=== PATIENT | male | born 1960 | race Caucasian/White ===

== ENCOUNTER 2025-05-01 02:57 | Observation (INO) | payer OTHER, SELFPAY ==
[2025-05-01] VITALS (45 sets, daily range): BP systolic 102–212; BP diastolic 69–131; PULSE 54–98; RESP 11–29; TEMP 36.3–37; O2SAT 90–100; BMI 27.3
--- NOTE | 2025-05-01 03:06 | ECG_ITS ---
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 Measurements Intervals [place] Rate: 53 P: 56 NV: 153 QRS: 65 QRSD: 87 T: 69 QT: 441 QTc: 414 Interpretive Statements SINUS BRADYCARDIA WITH OCCASIONAL SUPRAVENTRICULAR PREMATURE COMPLEXES MODERATE ST DEPRESSION [0.05+ mV ST DEPRESSION] No previous ECG available for comparison Electronically Signed On 05-01-2025 11:39:48 TIMBER INSPECTOR by Nathaniel Elias M.D. [email or web address]
--- NOTE | 2025-05-01 03:06 | XRR_ITS ---
PROCEDURE INFORMATION: Exam: XR Chest Exam date and time: 05/01/2025 3:42 AM Age: 64 years old Clinical indication: Chest pressure; Prior surgery; Surgery date: 6+ months; Surgery type: RT shoulder. Thyroidectomy; C/O chest pain; Additional info: Cp TECHNIQUE: Imaging protocol: Radiologic exam of the chest. Views: 1 view. COMPARISON: No relevant prior studies available. FINDINGS: Lungs: No consolidation. Pleural spaces: No pleural effusion. No pneumothorax. Heart/Mediastinum: No cardiomegaly. Bones/joints: No acute findings. Organs: Surgical clips in the base of the neck compatible with provided history of thyroidectomy. Possible calcified splenic cyst measuring 2.5 cm. XR/XR chest 1V portable [id number] IMPRESSION: 1. No acute chest findings. 2. Possible calcified splenic cyst measuring 2.5 cm.
--- OUTSIDE RECORDS SUMMARY | 2025-05-01 03:11 | XMS_ITS | Patient Health Record ---
Author Organization [facility] Address [address] [place] [address] Care Team Providers Care Spindle Sander Name Role Phone Irma Barba Primary Care Provider [phone] IRMA BARBA Unavailable Unavailable Allergies No Known Allergies Reason For Referral Reason Left ear lesion Diagnosis 1 Ear lesion (H93.90) Referral Organization [facility] Referring Provider First Name Irma Referring Provider Last Name Jameson Referring Provider Speciality Nurse Prac titioner Referred Provider Irma Gomes Referred Provider Specialty Dermatology General Notes Nancy Franco 02/16 09:49:55 AM CDT > faxed Referral Priority Routine Medications Medication SIG (Take, Route, Frequency, Duration) Notes Start Date End Date Status Sewell Thyroid 15 MG Tablet 3 tablet on an empty stomach Orally Once a day; Duration: 90 days Active Sewell Thyroid 120 MG Tablet TAKE 1 TABLET BY MOUTH ONCE DAILY AND 3 15MG TO TOTAL 165MG DAILY; Duration: 90 days 02/15/2025 Active Social History Tobacco Use: Social History Observation Description Date Details (start date - stop date) Never Smoker NA - NA Social History Depression Screening Social Info Question Answer Notes PHQ-9 Little interest or pleasure in doing thin gs Not at all Feeling down, depressed, or hopeless Not at all Trouble falling or staying asleep, or sleeping t oo much Not at all Feeling tired or having little energy Not at all Poor appetite or overeating Not at all Feeling bad about yourself, or that you are a failure, or have let yourself or your family down Not at all Trouble concentrating on thi ngs, such as reading the newspaper or watching television Not at all Moving or speaking so slowly that other people could have noticed. Or the opposite ? being so fidgety or restless that you have been moving around a lot more than usual Not at all Thoughts that you would be b sharmaine off , or of hurting yourself in some way Not at all Total Score 0 Drugs/Alcohol: Social Info Question Answer Notes Alcohol Screen (Audit-C) Did you have a drink containing alcohol in the past year? No Points 0 Interpretation Negative Tobacco Use: Social Info Question Answer Notes Tobacco Control (Standard) Tobacco use: Nonsmoker Section Notes: 06/11/23 PHQ9 06/11/23 PHQ9 06/11/23 PHQ9 06/11/23 PHQ9 Problems Problem Type SNOMED Code ICD Code Onset Dates Problem Status W/U Status Risk Notes Problem Information temporarily unavailable Postprocedural hypothyroidism (E89.0) Active confirmed Problem Information temporarily unavailable Hypothyroid (E03.9) Active confirmed Problem Information temporarily unavailable Hyperlipidemia (E78.5) Active confirmed Vital Signs Heart Rate 72 /min 02/15/2025 Temperature 97.4 degrees Fahrenheit 02/15/2025 Respiratory Rate 18 /min 02/15/2025 Oximetry 99 % 02/15/2025 Blood pressure diastolic 76 mm Hg 02/15/2025 Height-cm 172.72 cm 02/15/2025 Weight-kg 78.93 kg 02/15/2025 Height 68 in 02/15/2025 Blood pressure systolic 128 mm Hg 02/15/2025 Weight 174 lbs 02/15/2025 BMI 26.45 kg/m2 02/15/2025 Encounters Encounter Location Date Provider Diagnosis [facility] Office [address] [facility] [address] [place] [address] 02/15/2025 Irma Barba Postprocedural hypothyroidism E89.0 and Ear lesion H93.90 Assessments Encounter Date Diagnosis (ICD Code) Assessment Notes Treatment Notes Treatment Clinical Notes Section Notes 02/15/2025 Postprocedural hypothyroidism (ICD-10 - E89.0) 02/15/2025 Ear lesion (ICD-10 - H93.90) Plan Of Treatment No Information Insurance Providers Payer Name Payer Address Payer Phone Subscriber Number Group Number Insured Name Patient Relationship to Insured Coverage Start Date Coverage End Date Anurag [address] [place] [phone] [id number] Cristi Piper Self - patient is the insured Medical (General) History Medical History History ICD Code Hypothyroidism thyroid cancer Surgical History Surgery Date(Month/Year) thyroidectomy back surgery brain surgery shoulder surgery
--- NOTE | 2025-05-01 03:27 | ED_ITS ---
HPI - Chest Pain 2 General: Chief Complaint: Chest Pain Stated Complaint: cp going down left arm Time Seen by Provider: 05/01/25 03:05 History of Present Illness: Patient is a 64-year-old male who presents to the emergency department with acute onset of chest pain that woke him from sleep approximately one hour prior to arrival. He describes the pain as crazy pain in my chest, down my arm and characterizes it as intense. The patient reports the pain is somewhat relieved by rolling on a ball. He has experienced similar episodes in the past, typically after meals, which resolved with rest. The patient notes the pain makes him gasp but denies that deep breathing exacerbates the pain. He reports some increase in pain with exertion (walking uphill to the car and from the waiting room) which improved with rest. The patient denies nausea but was observed to be belching. His administered aspirin prior to arrival and noted his blood pressure was significantly elevated at 200/119 mmHg. Related Data Home Medications ?Medication ?Instructions ?Recorded ?Confirmed mupirocin 2 % topical ointment See Rx Instructions .Ro lizzette .COMPLEX 05/01/25 05/01/25 thyroid (pork) 120 mg tablet (LITIGATION SERVICES MANAGER 120 mg PO DAILY 05/0105/01/25 Thyroid) thyroid (pork) 15 mg tablet (LITIGATION SERVICES MANAGER 45 mg PO DAILY 5 05/01/25 Thyroid) Allergies Allergy/AdvReac Type Severity Reaction Status Date / Time No Known Allergies Allergy Verified 05/01/25 03:08 [facility] ED 2 PFSH: Social History Smoking and tobacco/nicotine status: never used tobacco/nicotine Physical Exam 2 Const: COMMON NORMALS: no acute distress GENERAL APPEARANCE: cooperative; not frail appearing HENMT: COMMON NORMALS: normocephalic, atraumatic and Normal external nose present HEAD & SCALP: normocephalic and atraumatic FACE & SINUS: normal facial exam and face symmetric NOSE: Normal external nose present Eye: COMMON NORMALS: Equal, round and reactive pupils present and EOMs intact bilaterally PUPIL: Yes Equal, round and reactive pupils present Neck/C-Spine: GENERAL: Yes trachea midline Chest: CHEST: Yes Symmetrical chest wall rise Resp: COMMON NORMALS: normal respiratory effort, No retractions, No use of accessory muscles and clear to auscultation bilaterally AUSCULTATION: clear to auscultation bilaterally Cardio: COMMON NORMALS: regular rate and regular rhythm RATE: regular rate RHYTHM: regular rhythm GI: COMMON NORMALS: Normal to inspection, nondistended, normoactive bowel sounds present Extremity: COMMON NORMALS: no pedal edema Neuro: BIMAL COMA SCALE: document GCS findings [place] coma scale eye opening: Spontaneous [place] coma scale verbal response: Orientated [place] coma scale motor response: Obey commands [place] coma scale total score: 15 S ENSORY EXAM: Yes extremities (intact) Psych: COMMON NORMALS: speech normal SPEECH: Yes normal speech Skin: COMMON NORMALS: no rashes or lesions noted GENERAL SKIN EXAM: no rashes or lesions noted Course 2 Vital Signs: Vital signs: Vital Signs Temperature 98.0 F 05/01/25 15:05 Pulse Rate 62 05/01/25 15:24 Respiratory Rate 15 05/01/25 15:24 Blood Pressure 152/76 05/01/25 15:15 Pulse Oximetry 96 05/01/25 15:24 Oxygen Delivery Me thod Room Air 05/01/25 15:24 MDM - Chest Pain Medical Decision Making Patient is given nitroglycerin morphine and Zofran and a GI cocktail. He does have a history of hiatal hernia. He is hypertensive on arrival. blood pressure begging to improve. The story is concerning, he is quite hypertensive, his EKG is abnormal. His first troponin is 36. Creatinine is 0.7. Given these findings, he will be admitted for chest pain, hypertensive emergency, troponin elevation and probable non-stemi. Second troponin is pending. Spoke with the hospitalist. Agreed to admission. He was given Heparin and Plavix as well as Aspirin in the ER. He will go to the CSU. Lab Data 05/01/25 03:17 05/01/25 03:17 Radiology Impressions Chest X-Ray 05/01/25 03:06 IMPRESSION: 1. No acute chest findings. 2. Possible calcified splenic cyst measuring 2.5 cm. Laboratory Results WBC 7.36 10^3/uL (3.29-11.43) 05/01/25 03:17 RBC 5.54 10^6/uL (3.85-5.65) 05/01/25 03:17 Hgb 17.10 g/dL (11.27-16.99) H 11/30/25 03:17 Hct 46.7 % (37-53) 05/01/25 03:17 MCV 84.3 fl (82-101) 05/01/25 03:17 MCH 30.9 pg (27-33) 05/01/25 03:17 MCHC 36.6 g/dL (30-55) 05/01/25 03:17 RDW 12.6 % (12.1-15.1) 05/01/25 03:17 Plt Count 240 10^3/cmm (157-399) 05/01/25 03:17 MPV 10.0 fL (7.4-10.4) 05/01/25 03:17 Neut % (Auto) 66.9 % 05/01/25 03:17 Lymph % (Auto) 24.7 % 05/01/25 03:17 Angelina % (Auto) 5.3 % 05/01/25 03:17 Eos % (Auto) 2.7 % 05/01/25 03:17 Baso % (Auto) 0.3 % 05/01/25 03:17 Neut # (Auto) 4.92 10^3/uL (1.8-7.7) 05/01/25 03:17 Lymph # (Auto) 1.8 10^3/uL (0.8-4.8) 05/01/25 03:17 Angelina # (Auto) 0.4 10^3/uL (0.2-0.9) 05/01/25 03:17 Eos # (Auto) 0.2 10^3/uL (0.0-0.8) 05/01/25 03:17 Baso # (Auto) 0.0 10^3/uL (0.0-0.1) 05/01/25 03:17 Nucleated RBC % (auto) 0 % 05/01/25 03:17 Nucleated RBCs # 0.0 /100WBC 05/01/25 03:17 PT 12.80 SECONDS (12.1-14.9) 05/01/25 03:17 INR 0.90 (0.8-1.2) 05/01/25 03:17 APTT 25.8 SECONDS (23.9-36.7) 05/01/25 03:17 Sodium 140 mmol/L (136-145) 05/01/25 03:17 Potassium 4.1 mmol/L (3.5-5.1) 05/01/25 03:17 Chloride 102 mmol/L (98-107) 05/01/25 03:17 Carbon Dioxide 25 mmol/L (22-29) 05/01/25 03:17 Anion Gap 17.1 (5-19) 05/01/25 03:17 BUN 11 mg/dL (8-23) 05/01/25 03:17 Creatinine 0.7 mg/dL (0.7-1.2) 05/01/25 03:17 GFR Calculation 114.3 mL/min (90-130) 05/01/25 03:17 Glucose 116 mg/dL (65-115) H 05/01/25 03:17 Calculated Osmolality 290 mOsm/kg (285-295) 05/01/25 03:17 Calcium 9.0 mg/dL (8.5-10.5) 05/01/25 03:17 Total Bilirubin 0.3 mg/dL (0.15-1.2) 05/01/25 03:17 AST 23 U/L (0-40) 05/01/25 03:17 ALT 20 U/L (0-41) 05/01/25 03:17 Alkaline Phosphatase 88 U/L (40-130) 05/01/25 03:17 Troponin T Baseline 36 ng/L (0-15) H 05/01/25 03:17 NT-Pro-B Natriuret Pep 89 pg/mL (0-125) 05/01/25 03:17 Total Protein 6.8 g/dL (6.6-8.7) 05/01/25 03:17 Albumin 4.8 g/dL (3.5-5.2) 05/01/25 03:17 Globulin 2.0 g/dL (1.3-4.6) 05/01/25 03:17 All radiology interpretation(s) finalized by discharge EKG Data EKG 1: Interpretation: EKG timed 305 read 306 reveals sinus bradycardia with frequent PVCs. [place] is normal. Rate is 50. QTc is 423 intervals are otherwise normal as well. No significant ST elevation or depression. Critical Care Time 2 Critical Care Time: Critical Care Time: Yes Total Critical Care Time: 35 Attestation: This case had a high probability of a clinically significant, sudden, or life threatening deterioration of this patient's condition which required my full and direct attention, intervention and personal management. time independent of any procedures performed. Discharge Plan Discharge Patient Disposition: Admitted As Inpatient Admit Provider: Reg Kinney Clinical Impression: NSTEMI (non-ST elevated myocardial infarction), Other chest pain Condition: Serious Coding Level of Care Code ED Managed Care Specialist for Chg Fwd Heart Score HEART Score Components History: Highly Suspicious EKG: Non-specific Changes Age: 45-64 yrs Risk Factors: 1 or 2 Risk Factors Troponin: Baseline Trop 16-45 ng/L HEART Score RESULT HEART Score: 6
[2025-05-01 03:32] LABS: Hematocrit 46.7 % (37-53); Hemoglobin 17.10 g/dL (11.27-16.99); Mean Corpuscular HGB Conc 36.6 g/dL (30-55); Mean Corpuscular Hemoglobin 30.9 pg (27-33); Mean Corpuscular Volume 84.3 fl (82-101); Nucleated Red Blood Cells % 0 %; Platelet Count 240 10^3/cmm (157-399); Red Blood Count 5.54 10^6/uL (3.85-5.65); White Blood Count 7.36 10^3/uL (3.29-11.43)
[2025-05-01] MEDS: morphine 4 mg/mL SDV 1 mL IVP (03:35)
[2025-05-01] MEDS: lidocaine 2% viscous 15 ML, aluminum-mag hydrox-simethicon 30 ML, sucralfate oral liq 1 GM PO (03:35)
[2025-05-01] MEDS: nitroglycerin 1 gm/inch oint Pkt 1.5 INCH TOPICAL (03:36)
[2025-05-01] MEDS: ondansetron 2 mg/ML SDV 2 mL 4 MG IVP (03:36)
[2025-05-01 03:37] LABS: INR 0.90 (0.8-1.2); Prothrombin Time 12.80 SECONDS (12.1-14.9)
[2025-05-01 03:38] LABS: Partial Thromboplastin Time 25.8 SECONDS (23.9-36.7)
[2025-05-01 03:42] LABS: Troponin(5th) Baseline 36 ng/L (0-15)
[2025-05-01 03:59] LABS: Alanine Aminotransferase 20 U/L (0-41); Albumin Level 4.8 g/dL (3.5-5.2); Alkaline Phosphatase 88 U/L (40-130); Aspartate Amino Transferase 23 U/L (0-40); Blood Urea Nitrogen 11 mg/dL (8-23); Calcium 9.0 mg/dL (8.5-10.5); Carbon Dioxide 25 mmol/L (22-29); Chloride 102 mmol/L (98-107); Globulin 2.0 g/dL (1.3-4.6); Glucose 116 mg/dL (65-115); NT Pro B Type Natriuretic Pept 89 pg/mL (0-125); Osmolality Calculated 290 mOsm/kg (285-295); Sodium 140 mmol/L (136-145); Total Protein 6.8 g/dL (6.6-8.7)
[2025-05-01 04:12] LABS: Anion Gap 17.1 (5-19); Potassium 4.1 mmol/L (3.5-5.1)
--- NOTE | 2025-05-01 04:45 | P.HP_ITS ---
Providers/Chief Complaint 2 Chief Complaint: cp going down left arm History of Present Illness Cristi Piper is a 64 year old male with history significant for thyroid cancer s/p thyroidectomy, HTN(not currently on medication) hiatal hernia, and reported nerve impingement affecting his left arm, who presents with complaints of left back pain. He states he has had this pain for the past two months and has gradually been getting worse. This morning the pain was severe and awoke him from his sleep. His girlfriend checked his blood pressure and noted it was elevated so they decided to go to the ED for further evaluation and management. The pain was constant and fluctuating this morning. He feels like the pain can come about after eating lunch prior to this morning. It is described as a pinch that is radiating to the left chest and the entire arm. The pain was a 10/10 this morning. He denies any associated shortness of breath or nausea but endorses sweats on awakening this AM. He maintains an active lifestyle and does not feel his normal activities are impaired. He says morphine administered in the ED improved the pain Medications/Allergies Allergies Allergy/AdvReac Type Severity Reaction Status Date / Time No Known Allergies Allergy Verified 05/01/25 03:08 PFSH Acute 2 PFSH: Social History Smoking and tobacco/nicotine status: never used tobacco/nicotine Vitals/I&O/Wt Last Vital Signs Temp 97.6 F 05/01/25 03:06 Pulse 64 05/01/25 04:33 Resp 15 05/01/25 04:33 BP 174/131 05/01/25 04:33 Pulse Ox 96 05/01/25 04:33 Weight last 48 hrs Weight 81.647 kg Physical Exam 2 Const: COMMON NORMALS: no acute distress and patient oriented x3 HENMT: COMMON NORMALS: normocephalic and atraumatic OTHER: left ear skin graft noted. Chest: COMMONS NORMALS: normal palpation of entire chest wall Resp: COMMON NORMALS: normal respiratory effort and No use of accessory muscles Cardio: COMMON NORMALS: regular rate, regular rhythm, S1 normal heart sound present, S2 normal heart sound present, No gallops present (Cardio), No clicks present (Cardio), No murmurs present (Cardio) and No rub (Cardio) GI: COMMON NORMALS: Normal to inspection, nondistended, normoactive bowel sounds present Extremity: COMMON NORMALS: normal to inspection Neuro: COMMON NORMALS: patient oriented x3 and CN's II-XII intact bilaterally Data 05/01/25 03:17 05/01/25 03:17 A&P Assessment and plan 1. Other chest pain: - Concern for ACS with patient awakening from sleep with severe pain radiating to the chest and left arm - Consideration also for MSK pain or neuropathic pain - ASA and Plavix load along with heparin infusion provided - Pending repeat troponins and EKGs - PRN morphine - NPO except sips of water - Will consult cardiology in the AM 2. Hypertensive urgency: - Nitro paste provided to patient in the ED - PRN hydralazine for SBP>180 - Consider restarting oral antihypertensives. Patient mentions he was previously on lisinopril which he did not tolerate but reports BPs at home are systolics 120s PDMP PDMP Reviewed: Not Reviewed Attestations 2 Medical Necessity Statement*: Anticipated stay less than 2 midnights for chest pain evaluation Coding Level of Care Code Acute Code for Chg Fwd Diagnoses Other chest pain R07.89 Chest pain type: other chest pain Hypertensive urgency I16.0
[2025-05-01] MEDS: heparin 5,000 unit/mL INJ 1 mL IVP (04:59)
--- NOTE | 2025-05-01 05:06 | ECG_ITS ---
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 Measurements Intervals [place] Rate: 55 P: 58 [place]: 145 QRS: 64 QRSD: 84 T: 86 QT: 410 QTc: 395 Interpretive Statements SINUS BRADYCARDIA ST & T-WAVE ABNORMALITY, POSSIBLE ISCHEMIA Compared to ECG 05/01/2025 03:06:14 PREMATURE ATRIAL COMPLEXES NO LONGER PRESENT Electronically Signed On 05-01-2025 12:06:45 DATA VISUALIZATION DEVELOPER by Nathaniel Elias M.D. [email or web address]
[2025-05-01] MEDS: heparin drip 25,000 UNIT/500 ML PREMIX 19.6 UNIT IV (05:14)
[2025-05-01 05:59] LABS: Cholesterol 235 mg/dL (0-200); HDL Cholesterol 50 mg/dL (60-100); Triglycerides 40 mg/dL (0-150)
[2025-05-01 06:04] LABS: Troponin 5 2HR Delta 114.1 ABS# (0-10)
[2025-05-01 06:05] LABS: Troponin 5 2HR 150.1 ng/L (0-15)
--- NOTE | 2025-05-01 07:49 | PC.PHAR ---
Pt has sensitivity to ALL other thyroid medications. NO SUBSTITUTIONS.
--- NOTE | 2025-05-01 08:13 | XACV_ITS ---
Exam Room: [facility] Ht: 173 cm Wt: 81 kg BSA: 1.98 m2 Gender: Male : 1960 Any Known Allergies: No known allergies Exam Priority: Routine Indication(s): - Non-ST elevation DE Procedure(s): Procedure Description: Diagnostic procedure Procedure Description: Coronary Angiography Diagnostic Cath Status: Urgent Diagnostic Findings * INDICATION: NSTEMI. * Left Main has no significant disease. * Right Coronary Artery is small sized, non-dominant vessel with severe diffuse disease. * Mid to Distal Left Anterior Descending: severe 90% stenosis, URI: 3 flow. * Circumflex has no disease. * Proximal Left Anterior Descending: obstructive 70% stenosis, URI: 3 flow. * 1st Diagonal: critical 95% stenosis, URI: 3 flow. * First Obtuse Marginal Branch Segment: severe 90% stenosis, URI: 3 flow. * Second Obtuse Marginal Branch Segment: severe 90% stenosis, URI: 3 flow. * Coronary angiography shows left dominance. Conclusions 1. Severe multivessel coronary artery disease. Patient will need discussion for revascularization with CABG vs PCI. Recommendations * Patient will be transferred to cardiac stepdown unit. Continue aspirin. Hold Plavix. After discussion with patient and family decision will be made regarding CABG vs PCI. Clinical Evaluation EBL: 5mL-10mL Procedural Details Procedure Consent Obtained. Admit Source: In Patient. Pre-Procedure Time Out. Identified patient by full name and date of as verbalized by the patient/guarantor. Does the consent match the physician's order: Yes. Accurate & Complete Informed Consent: Yes. Inpatient/Outpatient History & Physical on Chart: Yes. If H&P is completed, is and addenduem needed: No; If yes, is the addendum complete: N/A. Visualize and Verify Site with Patient/Guarantor: N/A. The risks, benefits, and alternatives of sedation and/or procedure were discussed by physician. The patient agrees to continue. Procedure started. [facility] Clinical Fraility Score: 3: Managing Well. Director Of Content And Programming Indications: Other. Chest Pain Symptom Assessment: Typical Angina Symptoms. Cardiovascular Instability: No. Correct patient, site and procedure confirmed by cath team. Current diagnosis: NSTEMI. PERRLA. Strong, equal hand shower screen installer bilaterally. Lungs clear x 5 lobes. IV Site on Arrival: 20 gauge in the left anticubital. IV Fluids: 0.9% NaCl at KVO. 0 mL infused prior to packing house laborer. Pre Procedural Pulses: bilateral posterior tibial was 3+. Pre Procedural Pulses: bilateral dorsalis pedis was 3+. Pre Procedural Pulses: bilateral radial was 3+. Oxygen started at 3liters/min via nasal canula. right groin was prepped with chloroprep then draped in the usual sterile fashion. right radial was prepped with chloroprep then draped in the usual sterile fashion. Physician notified. Baseline sample Acquired. HR: 58 BPM. Physician arrived. Physician scrubbed in. Family updated by MD prior to the start of the procedure. Immediate Pre-Procedure Time Out. Correct Patient: Yes; Correct Procedure: Yes; Correct Site: Yes; Correct Patient Position: Yes; Correct Supplies: Yes; Dried Flammable Prep: Yes; Blood Products Available: N/A;. Lidocaine 1% infiltrated to the right radial. Current Diagnosis : NSTEMI. Arterial access obtained. A 5 sudanese TIG catheter in over wire. Wire out. Hand injection of the right lower arm anatomy. Biggs wire inserted. Wire removed. Catheter removed over the wire. Radial access aborted. MD attempting to gain access in the Femoral artery. TR band placed. Hemostasis obtained. A TR Band was successful obtaining hemostatsis at the Right Radial artery insertion site. Lidocaine 1% infiltrated to the right groin. Arterial access obtained with micropuncture set. A 5 sudanese JL4 catheter in over wire. Multiple views taken of left coronary artery. Catheter removed over the standard wire. A 5 sudanese JR4 catheter in over wire. Multiple views taken of right coronary artery. Catheter removed over the standard wire. Physician review of films. [id number]. A Right femoral angiogram was performed to determine safe placement of closure device. Phsician scrubbed out. Post-op diagnosis: Severe multivessel CAD. Sheath(s) sutured into position with 2-0 silk and sterile 4x4's and Op-site applied over the site. No oozing or signs and symptoms of hematoma noted. Arterial sheath flushed and connected to tranducer and pressure bag with heparinized saline. Post Procedure: Pulses reassessed and unchanged. PERRLA. Strong, equal hand shower screen installer bilaterally. No VTE prophylaxis required. Medication's Wasted: Nitro = 49.8 mg , Heparin = 4000 units. Total IV fluids: 50 mL. Fluoro: 3:07. Contrast type used: Visipaque 320 mgI/mL, 100 mL bottle. Complications: None. Estimated blood loss: 5mL-10mL. Responsiveness - Normal response to verbal stimuli; alert and oriented, PERRLA. Airway - Unaffected, no intervention required; spontaneous ventilation. Circulation: W/N/L, pulses unchanged. Nausea/Vomiting: No. Patient transferred by bed to 1st floor. Procedure completed. Access Site Site: Right Radial artery Sheath Size: 6 Fr Hemostasis Method: TR Band Hemostasis Success: Successful Site: Right Femoral artery Sheath Size: 6 Fr Hemostasis Success: Unsuccessful Procedure Medications Start: 8:38 AM Stop: 8:38 AM Medication: Benadryl Amount: 50 mg Route: I.V. Start: 8:41 AM Stop: 8:41 AM Medication: Versed Amount: 1 mg Route: I.V. Start: 8:41 AM Stop: 8:41 AM Medication: Fentanyl Amount: 50 mcg Route: I.V. Start: 8:43 AM Stop: 8:43 AM Medication: Versed Amount: 1 mg Route: I.V. Start: 8:47 AM Stop: 8:47 AM Medication: Nitrogylcerin Amount: 200 mcg Route: I.A. Start: 8:48 AM Stop: 8:48 AM Medication: Versed Amount: 1 mg Route: I.V. Start: 8:54 AM Stop: 8:54 AM Medication: Versed 1 mg and Fentanyl 25 mcg Amount: 1 Route: I.V. Start: 9:16 AM Stop: 9:16 AM Medication: Fentanyl Amount: 25 mcg Route: I.V. I, the attending physician, have reviewed and verified all procedure medications. Yes, all medications given per verbal order History/Risk Factors Hypertension: Yes Dyslipidemia: No Peripheral Arterial Disease (PAD): No Myocardial Infarction (DE): No Obesity: No Renal Disease: No Tobacco Use: Never Prior Interventions PCI: No CABG: No Valve Surgery: No Report Signatures Finalized by Cody Perez MD on 05/01/2025 10:18 AM
--- NOTE | 2025-05-01 08:23 | P.CONIM_ITS ---
Providers/Reason For Consult 2 Consulting Physician/Specialty*: Cody Perez MD/ Cardiology Reason for Consult*: NSTEMI Requesting Physician: Dr Cedeno Attending Physician: Giuliano Mcgrath History of Present Illness History of Present Illness Cristi Piper is a 64 year old male with past medical history of thyroid cancer, hiatal hernia who presented to hospital with severe chest pain radiating to left arm that woke him up at 2 AM last night. His blood pressure at home was over 200 mmHg. His troponins have trended up significantly from a baseline of 36 to 2-hour troponin of 150. In the past as well he has experienced left arm discomfort which he attributed to pinched nerve. EKG shows sinus rhythm with diffuse mild ST depression Review of Systems 2 Card: Reports: chest pain Medications/Allergies Home Medications ?Medication ?Instructions ?Recorded ?Confirmed ?Last Taken ?Type mupirocin 2 % topical ointment See Rx Instructions .Ro lizzette .COMPLEX 05/01/25 05/01/25 Unknown History thyroid (pork) 120 mg tablet (INTERNAL CORROSION SPECIALIST 120 mg PO DAILY 05/0105/01/25 04/29/25 History Thyroid) thyroid (pork) 15 mg tablet (INTERNAL CORROSION SPECIALIST 45 mg PO DAILY 5 05/01/25 04/29/25 History Thyroid) Allergies Allergy/AdvReac Type Severity Reaction Status Date / Time No Known Allergies Allergy Verified 05/01/25 03:08 Current Medications Generic Name Dose Route Start Last Admin Trade Name Freq PRN Reason Stop Dose Admin Heparin Sodium/Sodium Chloride 25,000 unit in 500 mls @ 19.595 mls/hr 05/01/25 04:45 05/01/25 05:14 Heparin Drip IV 12 unit/kg/hr CONT ARBEN 19.6 mls/hr Protocol Administration 12 UNIT/KG/HR PFSH Acute 2 PFSH: Social History Smoking and tobacco/nicotine status: never used tobacco/nicotine Vitals/I&O/Wt Last Vital Signs Temp 97.4 F L 05/01/25 07:44 Pulse 59 L 05/01/25 07:44 Resp 14 05/01/25 07:44 BP 136/78 05/01/25 07:44 Pulse Ox 94 05/01/25 07:44 O2 Del Method Room Air 05/01/25 07:44 04/30/25 05/01/25 05/01/25 22:59 06:59 14:59 Output Total 310 / 310 Balance -310 / -310 Weight last 48 hrs Weight 178 lb 2.136 oz Weight 178 lb 5.663 oz Weight 180 lb Physical Exam 2 Narrative: GENERAL: Patient is alert, awake and oriented x3. [] NECK: No jugular vein distension. [] HEENT: No cyanosis. No icterus. No pallor. [] HEART: Regular S1 and S2. Grade 2/6 systolic murmur LUNGS: Clear to auscultate bilaterally. [] CENTRAL NERVOUS SYSTEM: Grossly nonfocal. [] EXTREMITIES: Lower extremities with no edema bilaterally. Data 05/01/25 03:17 05/01/25 03:17 A&P Assessment and plan 1. Hypertensive urgency: 2. NSTEMI (non-ST elevated myocardial infarction): Plan: Patient had typical chest pain along with significant troponin elevation. Findings are consistent with a non-ST elevation [place]. However this was in setting of very high blood pressure. Given his presentation, we will proceed with coronary angiogram with possible PCI. Risk and benefit of the procedure have been discussed in detail with the patient. He understands these and wants to proceed. Echocardiogram ordered. Continue aspirin Plavix. Thank you for involving us with the care of this patient. We will continue to follow. Please call with questions. PDMP PDMP Reviewed: Not Reviewed Consult Attestations 2 Medical Necessity Statement: Care expected to cross 2 midnights. Coding Level of Care Code Acute Code for g Fwd Diagnoses Hypertensive urgency I16.0 NSTEMI (non-ST elevated myocardial infarction) I21.4
--- NOTE | 2025-05-01 09:06 | ECG_ITS ---
[facility] Date[facility] 2025-05-01 Pat Name: Cristi Piper Department: Room: 101 Gender: Male Supplemental Manager: : 1960 Requested By: Edmond Weston Order Number: [id number] Nicolasa MD: Nathaniel Elias M.D. Measurements Intervals [place] Rate: 55 P: 54 VT: 151 QRS: 63 QRSD: 85 T: 90 QT: 430 QTc: 413 Interpretive Statements SINUS BRADYCARDIA LATERAL T WAVE INVERSION MINIMAL ST DEPRESSION [0.025+ mV ST DEPRESSION] Compared to ECG 05/01/2025 06:19:47 NO SIGNIFICANT CHANGE Electronically Signed On 05-01-2025 12:02:36 SPOUT POSITIONER by Nathaniel Elias M.D. [email or web address]
--- NOTE | 2025-05-01 09:19 | W.PM.OPSUD ---
Surgery/Procedure H&P Update DATE OF PROCEDURE: May 01, 2025 DATE H&P PERFORMED: 05/01/25 H&P UPDATE INFORMATION: I have reviewed H&P completed within last 30 days, I have examined patient prior to procedure and No changes to prior documentation PREOP DIAGNOSIS: NSTEMI PRIMARY INDICATION FOR PROCEDURE: NSTEMI PLANNED PROCEDURE: Left heart cath with possible percutaneous coronary intervention PATIENT REASSESSED PRIOR TO SEDATION, WITH NO CHANGE NOTED: Yes PHYSICAL EXAM: alert, oriented x 3, clear to auscultation bilaterally and regular rate & rhythm AIRWAY EVAL/ANESTHESIA PLAN: normal airway, ASA III, Local Anesthesia, Risks, benefits & alternatives of sedation and/or procedure discussed and Patient agrees to continue as planned ADDITIONAL INFORMATION: Moderate sedation
--- NOTE | 2025-05-01 09:24 | PM.PROC ---
Procedure Note: Date of procedure: 05/01/25 Pre-procedure diagnosis: NSTEMI Post-procedure diagnosis: other (Severe multivessel coronary artery disease) Procedure: Proximal LAD has 70% stenosis. Mid to distal LAD has 80-90% stenosis. Diagonal artery has 95% stenosis. Left circumflex artery is dominant vessel. OM 1 and OM 2 have severe disease. RCA is a small non-dominant vessel with severe diffuse disease. Patient will need discussion about options including CABG vs multivessel PCI. As he is sedated, we will stop procedure now and after discussion, will decide on further management. Performing Provider: Cody Perez Complications: None Condition: stable Disposition: floor Coding Level of Care Code Acute Code for Humberto Chen
--- NOTE | 2025-05-01 09:52 | PC.NURSE ---
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 Patient vitals are within normal limits and patient resting comfortably, reporting no pain.
--- NOTE | 2025-05-01 10:46 | P.PN_ITS ---
Subjective 2 Subjective: Currently no chest pain or pressure. Vitals/I&O/Wt Last Vital Signs Temp 97.4 F L 05/01/25 07:44 Pulse 59 L 05/01/25 07:44 Resp 14 05/01/25 07:44 BP 136/78 05/01/25 07:44 Pulse Ox 94 05/01/25 07:44 O2 Del Method Room Air 05/01/25 07:44 04/30/25 05/01/25 05/01/25 22:59 06:59 14:59 Output Total 310 / 310 Balance -310 / -310 Weight last 48 hrs Weight 80.8 kg Weight 80.9 kg Weight 81.647 kg Physical Exam 2 Const: COMMON NORMALS: patient oriented x3 and alert GENERAL APPEARANCE: c ooperative ORIENTATION/CONSCIOUSNESS: Yes awake HENMT: COMMON NORMALS: oropharynx normal Neck/C-Spine: COMMON NORMALS: no JVD Resp: COMMON NORMALS: normal respiratory effort and clear to auscultation bilaterally AUSCULTATION: clear to auscultation bilaterally Cardio: COMMON NORMALS: no JVD, regular rhythm, S1 normal heart sound present, S2 normal heart sound present and No murmurs present (Cardio) RHYTHM: regular rhythm HEART SOUNDS: S1 normal heart sound present and S2 normal heart sound present GI: COMMON NORMALS: Normal to inspection, nondistended, normoactive bowel sounds present, Soft to palpation and non-tender PALPATION: Yes Soft to palpation Extremity: COMMON NORMALS: no joint enlargement and no pedal edema Neuro: COMMON NORMALS: patient oriented x3 and moves all extremities S ENSORIUM/ORIENTATION: Yes alert Skin: COMMON NORMALS: no rashes or lesions noted GENERAL SKIN EXAM: no rashes or lesions noted Data 05/01/25 03:17 05/01/25 03:17 A&P Assessment and plan 1. NSTEMI (non-ST elevated myocardial infarction): Reviewed vitals, CBC, INR, CMP, troponin series, noted positive troponin delta, discussed with him, baseline 36, at 2 hours troponin up to 150. Chest pain so far has resolved. Discussed with nursing, pillowcase turner. N.p.o. this morning, evaluated by cardiology, underwent coronary angiography with finding of multivessel coronary artery disease, with consideration of referral for CABG versus further management with PCI. Plavix held. Continue aspirin. Start statin. Beta-brendan considered, but with some bradycardia in the 50s hold off for now. Continue telemetry monitoring with risk of arrhythmia. Anticoagulation with heparin drip, monitor for risk of bleeding. 2. Multi-vessel coronary artery stenosis: Reviewed cardiology note. Further consideration of referral for CABG versus PCI. 3. Hypertensive urgency: Hypertensive urgency so far resolved with treatment. Blood pressure on recheck 136/78. As needed hydralazine is ordered. Reassess. With some bradycardia, at current time holding off on beta-brendan. He states his blood pressure normally runs closer to the above number. - PRN hydralazine for SBP>180 4. Other chest pain: - Concern for ACS with patient awakening from sleep with severe pain radiating to the chest and left arm - Consideration also for MSK pain or neuropathic pain - ASA and Plavix load along with heparin infusion provided - Pending repeat troponins and EKGs - PRN morphine - NPO except sips of water - Will consult cardiology in the AM PDMP PDMP Reviewed: Not Reviewed Attestations 2 Medical Necessity Statement*: Continue admission for assessment management after NSTEMI, multivessel coronary disease finding, optimization of blood pressure control. and High MDM includes amount and/or complexity of data reviewed/ordered [ previous or external records, resulted lab(s)/test(s), ordered lab(s)/test(s) and other healthcare professional discussion] and described risk of complication, morbidity or mortality of management as documented Diagnoses NSTEMI (non-ST elevated myocardial infarction) I21.4 Multi-vessel coronary artery stenosis I25.10 Hypertensive urgency I16.0 Other chest pain R07.89 Chest pain type: other chest pain
[2025-05-01 10:55] LABS: Troponin 5 6HR 493.3 ng/L (0-15); Troponin 5 6HR Delta 457.3 ng/L (0-12)
--- NOTE | 2025-05-01 11:31 | USCV_ITS ---
Cristi Piper Age: 64 Gender: M : 1960 Exam Date: 05/01/2025 14:25 Ordering Phys: Cody Perez M.D ([email or web address]) Technologist: Maicol Love [place] [facility] [place]: nstemi BP: 103 / 74 HR: 60 Rhythm: Sinus Technical Quality: Adequate MEASUREMENTS (Male / Female) Normal Values 2D ECHO LV Diastolic Diameter PLAX 4.6 cm 4.2 - 5.9 / 3.9 - 5.3 cm IVS Diastolic Thickness 0.7 cm 0.6 - 1.0 / 0.6 - 0.9 cm IVS Systolic Thickness 1.2 cm LVPW Diastolic Thickness 0.8 cm 0.6 - 1.0 / 0.6 - 0.9 cm LVPW Systolic Thickness 1.3 cm LVOT Diameter 2.0 cm LV Ejection Fraction 2D Teich 71.1 % LV Ejection Fraction MOD 4C 71.2 % LV Ejection Fraction MOD 2C 60.5 % LV Ejection Fraction 2C AL 60.9 % LA Diameter 3.5 cm RA Systolic Volume 4C AL 47.6 ml RA Systolic Volume 4C MOD 47.4 ml LA Sys Volume AL 44.5 cm cubed LA Sys Volume Index AL 22.5 cm cubed/m squared Aorta at Sinotubular Diameter 3.1 cm IVC Diameter 1.9 cm M-MODE AV Cusp Separation MM 1.7 cm DOPPLER AV Peak Velocity 138.3 cm/s LVOT Peak Velocity 121.0 cm/s AV Area Cont Eq vti 2.8 cm squared AV Area Cont Eq pk 2.8 cm squared MV Peak Velocity 87.0 cm/s MV Area PHT 4.2 cm squared Mitral E to A Ratio 1.0 TR Peak Velocity 322.0 cm/s TR Peak Gradient 41.5 mmHg TR Mean Velocity 275.0 cm/s TR Mean Gradient 31.1 mmHg TR Velocity Time Integral 83.5 cm PV Peak Velocity 93.0 cm/s RV Ejection Time 0.3 s FINDINGS Left Ventricle Normal left ventricular size and systolic function, EF 55-60%. No regional wall motion abnormalities. Right Ventricle Normal in size and function Right Atrium Normal in size Left Atrium Normal in size IA Septum Grossly normal Mitral Valve Structurally normal mitral valve. Mild mitral regurgitation. Aortic Valve Structurally normal aortic valve. No significant stenosis or regurgitation. Tricuspid Valve Mild tricuspid regurgitation. Insufficient TR jet to calculate RVSP Pulmonic Valve Not well visualized Pericardium Normal Aorta Normal in size IVC Appears to be normal CONCLUSIONS LV systolic function is normal with EF of 55-60% Mild mitral regurgitation. Mild tricuspid regurgitation. Cody Perez MD (Electronically Signed) Final Date: 02 May 2025 09:03 S
[2025-05-01 11:41] LABS: Partial Thromboplastin Time 29.8 SECONDS (23.9-36.7)
--- NOTE | 2025-05-01 17:41 | PC.NURSE ---
per pharmacy, patient's weight changed on the infusion pump to 81kg.
[2025-05-01 18:44] LABS: Partial Thromboplastin Time 34.1 SECONDS (23.9-36.7)
[2025-05-02] VITALS (18 sets, daily range): BP systolic 161–193; BP diastolic 96–132; PULSE 64–96; RESP 13–22; TEMP 36.7–36.9; O2SAT 96–98
[2025-05-02 00:59] LABS: Partial Thromboplastin Time 61.7 SECONDS (23.9-36.7)
[2025-05-02 03:11] LABS: Hematocrit 43.9 % (37-53); Hemoglobin 15.60 g/dL (11.27-16.99); Mean Corpuscular HGB Conc 35.5 g/dL (30-55); Mean Corpuscular Hemoglobin 30.0 pg (27-33); Mean Corpuscular Volume 84.4 fl (82-101); Nucleated Red Blood Cells % 0 %; Platelet Count 187 10^3/cmm (157-399); Red Blood Count 5.20 10^6/uL (3.85-5.65); White Blood Count 7.41 10^3/uL (3.29-11.43)
[2025-05-02 03:41] LABS: Anion Gap 13.1 (5-19); Blood Urea Nitrogen 10 mg/dL (8-23); Calcium 8.6 mg/dL (8.5-10.5); Carbon Dioxide 25 mmol/L (22-29); Chloride 103 mmol/L (98-107); Glucose 104 mg/dL (65-115); Osmolality Calculated 283 mOsm/kg (285-295); Potassium 4.1 mmol/L (3.5-5.1); Sodium 137 mmol/L (136-145)
[2025-05-02 08:10] LABS: Partial Thromboplastin Time 65.7 SECONDS (23.9-36.7)
--- NOTE | 2025-05-02 09:56 | PC.CHAP ---
Pastoral Care Encounter/Spiritual Assessment Type of Contact [] Declined customer records division supervisor visit [] Patient/Family/Request visit [] Outpatient visit [] Follow-up visit [] Physician referral [] Code/Alert [x] Routine visit [] Staff referral [] Actively dying [] Patient sleeping [] Family support [] [] Out of room [] Palliative care [] [] Receiving care in room [] Pre-surgical visit [] Trauma [] Long length of stay [] ICU visit [] Other: Relational/Emotional Strength [] Patient feels connected with others/family/visitors/staff [] Distress [] Loneliness/isolation [] Abandonment Spirituality of Patient [x] Person of [place]amar [] Attends Roman Catholic of their [place] [x] Believes in Prayer [] Reads Bible or Latter Day materials [] There are Spiritual issues to be addressed Offbearer Interventions [x] Prayer [x] Active listening [] Non-anxious presence [] Spiritual/emotional support [] Crisis/trauma care [] Spiritual counseling [] Bereavement support [] Provided bereavement packet [x] Provided Bible/devotional materials [] Provided toy/stuffed animal, coloring book to patient or family member [] Provided Communion [] Anointing/Barney [] Salvation [x] Completed spiritual assessment [] Other: Impact on Illness or Injury [] Angry [] Fearful [] Anxious [] Often cries [] Exhaustion [] Unable to work [] Unable to attend episcopal [] Unable to walk/stand [] Unable to read [] Unable to drive [] Unable to eat/drink [] Unable to sleep [] Unable to be with family [] Patient intubated [] Other: Summary Time spent with patient 10 min
--- NOTE | 2025-05-02 13:29 | PM.PN ---
Subjective Subjective: Patient doing well without complaints. Denies chest pain or shortness of breath. Currently on heparin drip. Amlodipine 10 mg has been added today due to hypertension. At this time patient agrees for transfer to [facility] for possible CABG versus multivessel P CI. Vitals/I&O/Wt Last Vital Signs Temp 98.1 F 05/02/25 11:21 Pulse 85 05/02/25 11:21 Resp 18 05/02/25 11:21 BP 176/109 05/02/25 11:21 Pulse Ox 98 05/02/25 11:21 O2 Del Method Room Air 05/02/25 11:21 05/01/25 05/02/25 05/02/25 22:59 06:59 14:59 Intake Total 84.933 / 369.360 145.844 / 515.204 960 / 960 Output Total 425 / 735 275 / 1010 325 / 325 Balance -340.067 / -365.640 -129.156 / -494.796 635 / 635 Weight last 48 hrs Weight 177 lb 0.499 oz Weight 178 lb 2.136 oz Weight 178 lb 5.663 oz Weight 180 lb Physical Exam Narrative: General: No apparent distress, healthy appearing, well nourished HENMT: normoceophalic Neck: No carotid bruit bilaterally Muskuloskeletal: Full ROM Respiratory: Normal respiratory effort, clear to auscultation bilaterally throughout all lung sin, no use of accessory muscles Cardio: No JVD, regular rate, regular rhythm, S1 S2 normal, no murmurs, peripheral pulses 2+ radial palpated bilaterally GI: Normal to inspection, nondistended Extremities: Full ROM, normal, normal capillary refill, no cyanosis or edema Neuro: Alert and oriented x4 Psych: Affect normal, denies suicidal ideation, mental status grossly normal Skin: No rashes or lesions noted, no wounds Data 05/02/25 03:00 05/02/25 03:00 A&P Assessment and plan 1. Hypertensive urgency: 2. NSTEMI (non-ST elevated myocardial infarction): Plan: Patient has multivessel disease. He has agreed to transfer to [facility] for CABG vs multivessel PCI. Will continue to work on BP. Amlodipine added. Continue heparin drip. Continue aspirin 81 mg. Bradycardic at times. Beta brendan is not given at this time due to that. Will work on getting patient accepted at [facility]. PDMP PDMP Reviewed: Not Reviewed Attestations Medical Necessity Statement*: Deferred to primary. Coding Level of Care Code Acute Code for Chg Fwd Diagnoses Hypertensive urgency I16.0 NSTEMI (non-ST elevated myocardial infarction) I21.4
[2025-05-02 13:37] LABS: Partial Thromboplastin Time 60.7 SECONDS (23.9-36.7)
--- NOTE | 2025-05-02 17:15 | PM.TDS ---
Transfer Summary Providers Date of Admission: 05/01/25 04:33 Date of Discharge/Transfer: 05/02/25 Attending Provider at Admission: Reg Kinney MD Attending Provider at Transfer: Giuliano Mcgrath Transfer Plans: Anticipated date of transfer: 05/02/25. Diagnoses at Discharge Discharge Diagnosis 1. Hypertensive urgency: 2. NSTEMI (non-ST elevated myocardial infarction): Reason for Visit Reason for Visit cp going down left arm Brief History: Cristi Piper is a 64 year old male with history significant for thyroid cancer s/p thyroidectomy, HTN(not currently on medication) hiatal hernia, and reported nerve impingement affecting his left arm, who presents with complaints of left back pain. He states he has had this pain for the past two months and has gradually been getting worse. This morning the pain was severe and awoke him from his sleep. His girlfriend checked his blood pressure and noted it was elevated so they decided to go to the ED for further evaluation and management. The pain was constant and fluctuating this morning. He feels like the pain can come about after eating lunch prior to this morning. It is described as a pinch that is radiating to the left chest and the entire arm. The pain was a 10/10 this morning. He denies any associated shortness of breath or nausea but endorses sweats on awakening this AM. He maintains an active lifestyle and does not feel his normal activities are impaired. He says morphine administered in the ED improved the pain Hospital Course Hospital Course With patient was found to have NSTEMI with rising troponin, was treated with aspirin, had been loaded with Plavix in the ED, started on anticoagulation, echocardiogram assessed with normal ejection fraction, minimal MVR, mild TVR, was assessed by coronary angiography with finding of multivessel coronary disease. Patient continued on aspirin, statin, anticoagulation. Started on amlodipine for hypertension. Without beta-brendan due to mild bradycardia into mid to high 50s. Further options considered with CABG versus PCI, with patient and family opting to pursue CABG, Plavix were held (last dose 300 mg at 4 AM on 05/01), transfer arrangements are made for cardiovascular surgery assessment and management at [facility] in [place]. Physical Exam Const: COMMON NORMALS: patient oriented x3 and alert GENERAL APPEARANCE: cooperative ORIENTATION/CONSCIOUSNESS: Yes awake HENMT: COMMON NORMALS: oropharynx normal Neck/C-Spine: COMMON NORMALS: no JVD Resp: COMMON NORMALS: normal respiratory effort and clear to auscultation bilaterally AUSCULTATION: clear to auscultation bilaterally Cardio: COMMON NORMALS: no JVD, regular rhythm, S1 normal heart sound present, S2 normal heart sound present and No murmurs present (Cardio) RHYTHM: regular rhythm HEART SOUNDS: S1 normal heart sound present and S2 normal heart sound present GI: COMMON NORMALS: Normal to inspection, nondistended, normoactive bowel sounds present, Soft to palpation and non-tender PALPATION: Yes Soft to palpation Extremity: COMMON NORMALS: no joint enlargement and no pedal edema NARRATIVE EXTREMITY EXAM: Bruise over the right wrist about 5 cm, without pulsatile mass. Right groin access site without any bruising, bleeding or pulsatile mass. Neuro: COMMON NORMALS: patient oriented x3 and moves all extremities SENSORIUM/ORIENTATION: Yes alert Skin: COMMON NORMALS: no rashes or lesions noted GENERAL SKIN EXAM: no rashes or lesions noted TS Data Studies Completed and Pending Pending at discharge Category Date Time Status Platelet Count Q2D Lab 05/03/25 04:00 Ordered Platelet Count Q2D Lab 05/05/25 04:00 Ordered Completed Studies During Hospitalization Category Date Time Status CLUB FORMER request for service Routine Exams 05/01/25 08:13 Completed XR chest 1V portable [id number] Stat Exams 05/01/25 03:06 Completed CV. echo complete* [id number] Routine Ultrasound 05/01/25 11:31 Completed Laboratory Last Values WBC 7.41 10^3/uL (3.29-11.43) 05/02/25 03:00 RBC 5.20 10^6/uL (3.85-5.65) 05/02/25 03:00 Hgb 15.60 g/dL (11.27-16.99) 05/02/25 03:00 Hct 43.9 % (37-53) 05/02/25 03:00 MCV 84.4 fl (82-101) 05/02/25 03:00 MCH 30.0 pg (27-33) 05/02/25 03:00 MCHC 35.5 g/dL (30-55) 05/02/25 03:00 RDW 12.8 % (12.1-15.1) 05/02/25 03:00 Plt Count 187 10^3/cmm (157-399) 05/02/25 03:00 MPV 9.7 fL (7.4-10.4) 05/02/25 03:00 Neut % (Auto) 60.5 % 05/02/25 03:00 Lymph % (Auto) 31.3 % 05/02/25 03:00 Harmon % (Auto) 5.5 % 05/02/25 03:00 Eos % (Auto) 2.3 % 05/02/25 03:00 Baso % (Auto) 0.3 % 05/02/25 03:00 Neut # (Auto) 4.48 10^3/uL (1.8-7.7) 05/02/25 03:00 Lymph # (Auto) 2.3 10^3/uL (0.8-4.8) 05/02/25 03:00 Harmon # (Auto) 0.4 10^3/uL (0.2-0.9) 05/02/25 03:00 Eos # (Auto) 0.2 10^3/uL (0.0-0.8) 05/02/25 03:00 Baso # (Auto) 0.0 10^3/uL (0.0-0.1) 05/02/25 03:00 Nucleated RBC % (auto) 0 % 05/02/25 03:00 Nucleated RBCs # 0.0 /100WBC 05/02/25 03:00 PT 12.80 SECONDS (12.1-14.9) 05/01/25 03:17 INR 0.90 (0.8-1.2) 05/01/25 03:17 APTT 60.7 SECONDS (23.9-36.7) H 05/02/25 13:16 Sodium 137 mmol/L (136-145) 05/02/25 03:00 Potassium 4.1 mmol/L (3.5-5.1) 05/02/25 03:00 Chloride 103 mmol/L (98-107) 05/02/25 03:00 Carbon Dioxide 25 mmol/L (22-29) 05/02/25 03:00 Anion Gap 13.1 (5-19) 05/02/25 03:00 BUN 10 mg/dL (8-23) 05/02/25 03:00 Creatinine 0.6 mg/dL (0.7-1.2) L 05/02/25 03:00 GFR Calculation 136.5 mL/min (90-130) H 05/02/25 03:00 Glucose 104 mg/dL (65-115) 05/02/25 03:00 Calculated Osmolality 283 mOsm/kg (285-295) L 05/02/25 03:00 Calcium 8.6 mg/dL (8.5-10.5) 05/02/25 03:00 Total Bilirubin 0.3 mg/dL (0.15-1.2) 05/01/25 03:17 AST 23 U/L (0-40) 05/01/25 03:17 ALT 20 U/L (0-41) 05/01/25 03:17 Alkaline Phosphatase 88 U/L (40-130) 05/01/25 03:17 Troponin T Baseline 36 ng/L (0-15) H 05/01/25 03:17 Troponin T 120 Minute 150.1 ng/L (0-15) H 05/01/25 05:27 Delta Troponin T 114.1 ABS# (0-10) H* 05/01/25 05:27 Troponin T Hi Sens 6Hr 493.3 ng/L (0-15) H 05/01/25 10:20 Troponin T Hi Sens 6Hr Delta 457.3 ng/L (0-12) H* 05/01/25 10:20 NT-Pro-B Natriuret Pep 89 pg/mL (0-125) 05/01/25 03:17 Total Protein 6.8 g/dL (6.6-8.7) 05/01/25 03:17 Albumin 4.8 g/dL (3.5-5.2) 05/01/25 03:17 Globulin 2.0 g/dL (1.3-4.6) 05/01/25 03:17 Triglycerides 40 mg/dL (0-150) 05/01/25 05:27 Cholesterol 235 mg/dL (0-200) H 05/01/25 05:27 LDL Cholesterol, Calc 177 mg/dL (50-129) H 05/01/25 05:27 HDL Cholesterol 50 mg/dL (60-100) L 05/01/25 05:27 LDL/HDL Ratio 3.54 RATIO (0.00-3.22) H 05/01/25 05:27 Cholesterol/HDL Ratio 4.70 mg/dL (1.0-5.00) 05/01/25 05:27 Radiology Impressions Chest X-Ray 05/01/25 03:06 IMPRESSION: 1. No acute chest findings. 2. Possible calcified splenic cyst measuring 2.5 cm. Recent Clincial Data Last Vital Signs Temp 98.1 F 05/02/25 11:21 Pulse 86 05/02/25 15:15 Resp 18 05/02/25 16:00 BP 193/132 05/02/25 15:15 Pulse Ox 96 05/02/25 15:15 O2 Del Method Room Air 05/02/25 16:00 Vital Signs Temp Pulse Resp BP Pulse Ox O2 Del Method 05/02/25 16:00 18 Room Air 05/02/25 15:15 86 16 193/132 96 05/02/25 15:00 86 16 96 Room Air 05/02/25 14:00 86 16 96 Room Air 05/02/25 13:00 86 16 96 Room Air 05/02/25 12:00 86 16 96 Room Air 05/02/25 11:21 98.1 F 85 18 176/109 98 Room Air 05/02/25 11:00 86 16 96 Room Air 05/02/25 10:00 86 16 96 Room Air 05/02/25 09:00 86 16 96 Room Air 05/02/25 08:00 86 16 96 Room Air 05/02/25 07:14 98.1 F 70 18 175/101 97 Room Air 05/02/25 07:00 85 18 98 Room Air Intake & Output/Weight 04/30/25 05/01/25 05/02/25 05/03/25 06:59 06:59 06:59 06:59 Intake Total 515.204 / 515.204 960 / 960 Output Total 1010 / 1010 325 / 325 Balance -494.796 / -494.796 635 / 635 Weight 80.8 kg 80.3 kg Vitals Last Vital Signs Temp 98.1 F 05/02/25 11:21 Pulse 86 05/02/25 15:15 Resp 18 05/02/25 16:00 BP 193/132 05/02/25 15:15 Pulse Ox 96 05/02/25 15:15 O2 Del Method Room Air 05/02/25 16:00 TS Medications Medications Amlodipine Besylate (Amlodipine 10 Mg Tablet) 10 mg PO DAILY [facility] Last Admin: 05/02/25 09:17 Dose: 10 mg Aspirin (Aspirin 81 Mg Ec Tablet) 81 mg PO DAILY [facility] Last Admin: 05/02/25 05:35 Dose: 81 mg Atorvastatin Calcium (Atorvastatin 40 Mg Tablet) 40 mg PO BEDTIME [facility] Last Admin: 05/01/25 20:47 Dose: 40 mg Heparin Sodium (Porcine) (Heparin 5,000 Unit/Ml Inj 1 Ml) 0 unit IVP PRN PRN; Protocol PRN Reason: Heparin Weight Based Protocol -Subsequent Bolus Hydralazine HCl (Hydralazine 20 Mg/Ml Inj 1 Ml) 10 mg IVP Q4H PRN PRN Reason: HYPERTENSION Heparin Sodium/Sodium Chloride (Heparin Drip) 25,000 unit in 500 mls @ 19.392 mls/hr IV CONT ARBEN; Protocol Last Admin: 05/02/25 06:25 Dose: Not Given Morphine Sulfate (Morphine 4 Mg/Ml Sdv 1 Ml) 4 mg IVP Q4H PRN PRN Reason: SEVERE PAIN Thyroid (Thyroid 60 Mg Tablet) 165 mg PO DAILY [facility] Last Admin: 05/02/25 06:44 Dose: 165 mg Discontinued Medications Aspirin (Aspirin 81 Mg Chew Tablet) 324 mg PO NOW ONE Stop: 05/01/25 04:19 Last Admin: 05/01/25 04:31 Dose: 324 mg Clopidogrel Bisulfate (Clopidogrel 300 Mg Tablet) 300 mg PO ONCE ONE Stop: 05/01/25 04:19 Last Admin: 05/01/25 04:31 Dose: 300 mg Lidocaine HCl 15 ml/ Al Hydrox /Mg Hydrox/Simethicone 30 ml/Sucralfate 1 gm 0 ml PO ONCE ONE Stop: 05/01/25 03:13 Last Admin: 05/01/25 03:35 Dose: 1 suspension Diphenhydramine HCl (Diphenhydramine 50 Mg/Ml Sdv 1ml) Confirm Administered Dose 50 mg .ROUTE .STK-MED ONE Stop: 05/01/25 08:37 Fentanyl (Fentanyl 50 Mcg/Ml Inj 2ml) Confirm Administered Dose 100 mcg .ROUTE .STK-MED ONE Stop: 05/01/25 07:52 Heparin Sodium (Porcine) (Heparin 5,000 Unit/Ml Inj 1 Ml) 0 unit IVP ONCE ONE; Protocol Stop: 05/01/25 04:37 Last Increment: 05/01/25 04:59 Dose: 4,100 unit Incremental Dosing Total Given: 4,100 unit Heparin Sodium (Porcine) (Heparin 5,000 Unit/Ml Inj 1 Ml) Confirm Administered Dose 10,000 unit .ROUTE .STK-MED ONE Stop: 05/01/25 07:52 Heparin Sodium/Sodium Chloride (Heparin Drip) 25,000 unit in 500 mls @ 19.595 mls/hr IV .Q24H ARBEN Lidocaine HCl (Xylocaine) Confirm Administered Dose 20 mls @ as directed .ROUTE .STK-MED ONE Stop: 05/01/25 07:52 Sodium Chloride (Sodium Chloride 0.9%) Confirm Administered Dose 1,000 mls @ as directed .ROUTE .STK-MED ONE Stop: 05/01/25 07:52 Midazolam HCl (Midazolam 1 Mg/Ml Inj 2 Ml) Confirm Administered Dose 2 mg .ROUTE .STK-MED ONE Stop: 05/01/25 07:52 Midazolam HCl (Midazolam 1 Mg/Ml Inj 2 Ml) Confirm Administered Dose 2 mg .ROUTE .STK-MED ONE Stop: 05/01/25 08:45 Morphine Sulfate (Morphine 4 Mg/Ml Sdv 1 Ml) 4 mg IVP ONCE ONE Stop: 05/01/25 03:13 Last Admin: 05/01/25 03:35 Dose: 4 mg Nitroglycerin (Nitroglycerin 1 Gm/Inch Oint Pkt) 1.5 inch TOPICAL ONCE ONE Stop: 05/01/25 03:13 Last Admin: 05/01/25 03:36 Dose: 1.5 inch Nitroglycerin (Nitroglycerin 5 Mg/Ml Sdv 10 Ml) Confirm Administered Dose 50 mg .ROUTE .STK-MED ONE Stop: 05/01/25 07:51 Ondansetron HCl (Ondansetron 2 Mg/Ml Sdv 2 Ml) 4 mg IVP ONCE ONE Stop: 05/01/25 03:13 Last Admin: 05/01/25 03:36 Dose: 4 mg Allergies No Known Allergies Allergy (Verified 05/01/25 03:08) Home Medications mupirocin 2 % topical ointment See Rx Instructions .Route .COMPLEX 05/01/25 [History Confirmed 05/01/25] thyroid (pork) 120 mg tablet (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 thyroid (pork) [ENTRY LEVEL ELECTRICIAN Thyroid] 15 mg tablet 45 mg PO DAILY Rx Instructions: Along with 120mg [id number] total thyroid (pork) [ENTRY LEVEL ELECTRICIAN Thyroid] 120 mg tablet 120 mg PO DAILY Rx Instructions: along with 3X15mg [id number] total Patient Instructions: Opioid Safety, Patient Portal & Ashutosh Instructions Transfer Attestations Time Spent in Transfer Care: greater than 30 min Quality Metrics Clinical Quality Measures [ Acute Myocardial Infaction { Clinical Trial Participant: No; Contraindication to aspirin: None; Aspirin prescribed; Contraindication to statin: None; Statin prescribed;}] Coding Level of Care Code 27927 Total time (in minutes) for Discharge: 40 Diagnoses Hypertensive urgency I16.0 NSTEMI (non-ST elevated myocardial infarction) I21.4
[2025-05-02] MEDS: heparin drip 25,000 UNIT/500 ML PREMIX 24.24 UNIT IV (18:50)
== END 2025-05-02 19:55 | disposition short-term general hospital (02) ==
LOC: ER 05:00 → CSU 05:53
PROVIDERS: Internal Medicine; Internal Medicine Cardiovascular Disease; Admitting Provider Family Medicine; Emergency Provider Emergency Medicine; Visit Provider Internal Medicine
DX: I21.4 Non-ST elevation (NSTEMI) myocardial infarction (principal); I16.0 Hypertensive urgency; I25.10 Atherosclerotic heart disease of native coronary artery without angina pectoris; I10 Essential (primary) hypertension; Z79.82 Long term (current) use of aspirin; Z79.891 Long term (current) use of opiate analgesic; Z85.850 Personal history of malignant neoplasm of thyroid
CPT/HCPCS: 36415; 71045; 80048; 80053; 80061; 83880; 84484; 85025; 85610; 85730; 93005; 93306; 93454; 96365; 96375; 99152; 99153; 99285; C1769; C1887; C1894; G0378; J1200; J1644; J2250; J2270; J2405; J3010; J3490; J7030; J9999; Q9967